=== PATIENT | female | born 2000 | race African-American/Black ===

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

== ENCOUNTER 2023-02-25 09:34 | Inpatient (IN) ==
[2023-02-25] MEDS ORDERED: Penicillin G Potassium IV 5,000,000 UNITS in NS 0.9% 100 ml BAG 100 ML IVPB ONE (10:09)
[2023-02-25] MEDS ORDERED: Lactated Ringers 1000 ml BAG 1,000 ML IV ONE ×2 (10:09→12:33)
[2023-02-25] MEDS ORDERED: Buffered Lidocaine 1% SYRIN 1 ml INTRADERM ONE (10:09)
[2023-02-25 11:25] LABS: ABS Eosinophils 0.4 10^3/uL (0.0-0.5); ABS Lymphocytes 1.9 10^3/uL (1.0-4.8); ABS Monocytes 0.7 10^3/uL (0.0-0.9); ABS Neutrophils 8.3 10^3/uL (1.5-7.6); ABS Nucleated RBC 0.04 10^3/ul; Eosinophil % 3.7 %; Hematocrit 28.9 % (35-45); Hemoglobin 9.4 g/dL (11.5-14.3); Lymphocyte % 16.7 %; Mean Corpuscular Hemoglobin 24.6 pg (27-33); Mean Corpuscular Hgb Conc 32.4 g/dL (31-36); Mean Corpuscular Volume 75.9 fL (80-97); Mean Platelet Volume 8.4 fL (7.5-11.2); Nucleated Red Blood Cells % 0.4 /100 WBC (0.0-0.4); Platelet Count 373 10^3/uL (150-450); Red Blood Count 3.81 10^6/uL (3.63-4.92); Red Cell Distribution Width 20.6 % (12-17); White Blood Count 11.3 10^3/uL (3.8-11.8)
[2023-02-25] MEDS ORDERED: OBEPIDURAL (200 ML) 200 ML EPIDURAL ONE (11:41)
[2023-02-25] MEDS ORDERED: Lidocaine 1.5% EPI 1:200,000 30 ML SDV ONE (11:41)
[2023-02-25 11:55] LABS: Albumin 3.2 g/dL (3.2-5.2); Potassium 3.7 mmol/L (3.5-5.0); Total Bilirubin 0.5 mg/dL (0.2-1.0)
[2023-02-25 12:01] LABS: Albumin/Globulin Ratio 0.9 (1-3); Creatinine, Serum 0.82 mg/dL (0.51-0.95); Globulin 3.7 g/dL (2-4); Total Protein 6.9 g/dL (6.4-8.9); Uric Acid 7.6 mg/dL (2.3-6.6); eGFR CKD-EPI 104.3 (>60)
[2023-02-25] MEDS ORDERED: Phenylephrine 40 mcg/mL 10mL (400mcg) SYRINGE IV PUSH PRN ×2 (12:33)
[2023-02-25] MEDS ORDERED: Lactated Ringers 1000 ml BAG 500 ML IV PRN ×2 (12:33)
[2023-02-25] MEDS ORDERED: Sodium Citrate/Citric Acid LIQ 15 ML UDC PO PRN (12:33)
[2023-02-25] MEDS ORDERED: OBEPIDURAL (200 ML) 200 ML EPIDURAL SCH (13:00)
[2023-02-25] MEDS ORDERED: Lactated Ringers 1000 ml BAG 1,000 ML IV SCH ×2 (13:00→16:00)
[2023-02-25 13:24] LABS: Urine Creatinine Concentration 208.18 mg/dL (20.00-320.00)
[2023-02-25 13:33] LABS: Urine TP Creat Ratio 0.36 mg/mg
[2023-02-25] MEDS ORDERED: Oxytocin in LR 20,000 MILLI.UNIT/1,000 ML BAG IV ONE (14:31)
[2023-02-25] MEDS ORDERED: Penicillin G Potassium IV 3,000,000 UNITS in NS 0.9% 100 ml BAG 100 ML IVPB SCH (15:00)
[2023-02-25] MEDS ORDERED: Witch Hazel PAD JAR TOPICAL PRN (15:14)
[2023-02-25] MEDS ORDERED: Dibucaine 1% OINT 28.35 GM TUBE PR PRN (15:14)
[2023-02-25] MEDS ORDERED: Oxytocin in LR 20,000 MILLI.UNIT/1,000 ML BAG IV SCH (15:15)
[2023-02-26 07:00] LABS: ABS Basophils 0.1 10^3/uL (0.0-0.1); ABS Eosinophils 0.7 10^3/uL (0.0-0.5); ABS Lymphocytes 3.8 10^3/uL (1.0-4.8); ABS Neutrophils 11.5 10^3/uL (1.5-7.6); ABS Nucleated RBC 0.01 10^3/ul; Eosinophil % 4.2 %; Hematocrit 27.6 % (35-45); Hemoglobin 8.9 g/dL (11.5-14.3); Lymphocyte % 22.3 %; Mean Corpuscular Hgb Conc 32.1 g/dL (31-36); Mean Platelet Volume 8.4 fL (7.5-11.2); Platelet Count 316 10^3/uL (150-450); Red Blood Count 3.54 10^6/uL (3.63-4.92); Red Cell Distribution Width 20.2 % (12-17)
[2023-02-26] MEDS ORDERED: medroxyPROGESTERone ACETATE 150 MG/ML VIAL IM ONE (16:57)
[2023-02-26 20:08] VITALS: BP 120/69
== END 2023-02-27 14:00 | disposition home or self-care (01) | DRG 560 ==
LOC: MCHOBOUT 09:34 → MCHOB 10:29
PROVIDERS: ADMIT Midwife; ATTEND Midwife